=== PATIENT | female | born 1990 | race Caucasian/White ===

== ENCOUNTER 2017-09-08 10:29 | Inpatient (IN) | payer OTHER ==
[2017-09-08] VITALS (10 sets, daily range): BP systolic 96–129; BP diastolic 48–66
[~2017-09-08] VITALS: Ht 175.3 cm; Wt 75.0 kg
[~2017-09-08 10:29] MED LIST: EVENING PRIMR1000 MG PO; IBUPROFEN800 MG PO; PRENATAL TABLE1 EAC3 PO; TUMS500 MG PO
[2017-09-08 13:51] LABS: HEMOGLOBIN A1c (GLYCOHEMOGLOB) 5.2 % (Below 5.7)
[2017-09-08 14:28] LABS: TREPONEMA ANTIBODY NEGATIVE (NEGATIVE)
[2017-09-08 16:56] LABS: AMPHETAMINE NEGATIVE (500 ng/mL); BARBITURATES NEGATIVE (200 ng/mL); BENZODIAZEPINES NEGATIVE (150 ng/mL); BUPRENORPHINE NEGATIVE (10 ng/mL); COCAINE NEGATIVE (150 ng/mL); METHADONE NEGATIVE (200 ng/mL); METHAMPHETAMINE NEGATIVE (500 ng/mL); OPIATES (MORPHINE) NEGATIVE (100 ng/mL); OXYCODONE NEGATIVE (100 ng/mL); PHENCYCLIDINE NEGATIVE (25 ng/mL); PROPOXYPHENE NEGATIVE (300 ng/mL); THC CANNABINOIDS NEGATIVE (50 ng/mL); TRICYCLIC ANTIDEPRESSANTS NEGATIVE (300 ng/mL)
[2017-09-08 19:26] LABS: BASOPHIL (%) 0.2 % (0-1); EOSINOPHIL (%) 0.4 % (0-5); HEMATOCRIT 33.4 % (36.0-46.0); HEMOGLOBIN 11.6 G/DL (11.9-15.5); IMMATURE GRANULOCYTE (%) 0.2 % (0.0-0.7); LYMPHOCYTE (%) 22.8 % (15-42); LYMPHOCYTE COUNT 1.8 K/uL (1.0-2.8); MCH 31.4 PG (29.0-34.0); MCHC 34.7 G/DL (30.0-36.0); MCV 90.3 FL (83-99); MONOCYTE (%) 11.4 % (3-12); MONOCYTE COUNT 0.9 K/uL (0-0.8); NEUTROPHIL COUNT 5.2 K/uL (1.8-6.4); PLATELET COUNT 155 K/uL (156-360); RBC DIS.WIDTH-CV 12.8 % (11.8-14.6); WHITE BLOOD COUNT 8.1 K/uL (4.1-10.2)
[2017-09-09] VITALS (19 sets, daily range): BP systolic 85–133; BP diastolic 49–85
[2017-09-10 06:07] LABS: BASOPHIL (%) 0.4 % (0-1); EOSINOPHIL (%) 1.1 % (0-5); EOSINOPHIL COUNT 0.1 K/uL (0-0.3); HEMATOCRIT 32.5 % (36.0-46.0); HEMOGLOBIN 10.9 G/DL (11.9-15.5); IMMATURE GRANULOCYTE (%) 0.3 % (0.0-0.7); LYMPHOCYTE (%) 29.1 % (15-42); MCHC 33.5 G/DL (30.0-36.0); MCV 92.3 FL (83-99); MONOCYTE (%) 10.2 % (3-12); MONOCYTE COUNT 0.7 K/uL (0-0.8); NEUTROPHIL (%) 58.9 % (45-76); NEUTROPHIL COUNT 4.1 K/uL (1.8-6.4); PLATELET COUNT 154 K/uL (156-360); RBC DIS.WIDTH-CV 13.1 % (11.8-14.6); RBC DIS.WIDTH-SD 43.9 % (39-53); RED BLOOD COUNT 3.52 M/uL (3.80-5.20)
[2017-09-10 07:25] VITALS: BP 104/62
== END 2017-09-10 13:40 | disposition home or self-care (01) | DRG 774 ==
LOC: LDRP-OP 10:29 → 2WEST 10:30 → LDRP-OP 10-13 09:00
PROVIDERS: Advanced Practice Midwife
DX: O88.22 Thromboembolism in childbirth (principal); O99.12 Other diseases of the blood and blood-forming organs and certain disorders involving the immune mechanism complicating childbirth; O12.04 Gestational edema, complicating childbirth; Z37.0 Single live birth; Z3A.39 39 weeks gestation of pregnancy; D69.59 Other secondary thrombocytopenia
CPT/HCPCS: 83036; 85025; 86780; 87086; 88307; C1755; G0378; J3010; J7120